=== PATIENT | male | born 1995 | race Caucasian/White ===

== ENCOUNTER → 2019-11-10 10:10 | Outpatient (CLI) | payer BC, SELFPAY ==
--- NOTE | 2019-11-10 10:14 | DI.RAD.S_ITS ---
PROCEDURE: XR FOOT RT MIN 3V INDICATIONS: follow up foot fracture TECHNIQUE: 3 views of the foot were acquired. COMPARISON: None. FINDINGS: Bones: No acute fractures or dislocations there is a healing fracture which is transverse in orientation across the base of the 5th metatarsal bone, extending into the articular surface medially, where it is in virtual anatomic alignment.. No suspicious bony lesions. Soft tissues: No tibiotalar joint effusion. Achilles tendon appears normal. IMPRESSION: Excellent anatomic alignment maintained during healing of a transverse intra-articular 5th metatarsal base fracture. Dictated by: Kirill Campbell M.D. on 11/10/2019 at 11:06 Approved by: Kirill Campbell M.D. on 11/10/2019 at 11:07
== END ==
PROVIDERS: Referring Provider Physician Assistant; Visit Provider Physician Assistant
DX: S92.351D Displaced fracture of fifth metatarsal bone, right foot, subsequent encounter for fracture with routine healing (principal); X58.XXXD Exposure to other specified factors, subsequent encounter
CPT/HCPCS: 73630